=== PATIENT | female | born 1985 | race Caucasian/White ===

== ENCOUNTER 2017-01-24 18:43 | Emergency (ER) | payer MEDICAID ==
[~2017-01-24] VITALS: Ht 157.5 cm; Wt 64.0 kg
[~2017-01-24 18:43] MED LIST: PNV11TAB PO
[2017-01-24 18:48] VITALS: Ht 157.5 cm; Wt 64.0 kg
[2017-01-24] MEDS ORDERED: ACETAMINOPHEN 325 MG TAB PO STA (20:36)
--- NOTE | 2017-01-24 21:23 | RADRPT ---
PROCEDURE: US OB. CLINICAL INDICATION: Pelvic pain. . TECHNIQUE: Multiple sonographic images of the uterus were obtained. The images were revi ewed on a PACS workstation. COMPARISON: No prior studies are available for comparison. FINDINGS: There is a single live intrauterine gestation. heart rate is 150 beats per minute. Measurements were made in order to determine age. The results are as follows: BPD = 4.25 cm. HC = 15.15 cm. AC = 13.56 cm. FL = 2.18 cm. Estimated weight is 255 +/- 38 grams. LMP growth percentile is greater than 97 %. Menstrual age by ultrasound dates is 18 weeks 5 days. The estimated date of delivery is 06/22/2017. Maximum vertical pocket of amniotic fluid is 4.7 cm. Cervical length is 4.0 cm. Position is breech/variable and placenta is posterior grade 0. There is no evidence for an abruption or placenta previa. IMPRESSION: 1. Single live intrauterine gestation of 18 weeks 5 days menstrual age by ultrasound dates. 2. The estimated date of delivery is 06/22/2017. RPTAT: QQ .Ag Pritchett MD, Date Time Electronically viewed and signed by .Ag Pritchett MD, on 01/24/2017 21:23 .R/
[2017-01-24] MEDS ORDERED: TYL500 PO (22:17)
--- NOTE | 2017-01-24 22:26 | ERD ---
ER Documentation Chief Complaint Chief Complaint lower abd pain and back pain x2 days. 18 weeks . HPI This is a 31-year-old female that presents to the ER with lower pelvic pain and back pain for the last 2 days. Patient states that back pain is located in the lower back. She denies any vaginal discharge or leakage. She denies any vaginal bleeding. Patient denies any urinary frequency or dysuria. A2. ROS 12 point review of systems was done, all negative except per HPI. Medications Home Meds Active Scripts Acetaminophen* (Tylenol*) 500 Mg Tab, 500 MG PO Q4H Y for MILD PAIN LEVEL 1-3 for 3 Days, TAB Prov:SHAYE STOKES 01/24/17 Reported Medications [id number] ( 19) 1 Each Tablet, 1 EACH PO 05/20/13 Allergies Allergies: Coded Allergies: No Known Drug Allergy (Verified Allergy, Unknown, 01/24/17) PMhx/Soc Medical and Surgical Hx: pt denies Medical Hx, pt denies Surgical Hx Hx Alcohol Use: No Hx Substance Use: No Hx Tobacco Use: No Smoking Status: Never smoker Physical Exam Vitals Vital Signs Date Time Temp Pulse Resp B/P Pulse Ox O2 Delivery O2 Flow Rate FiO2 01/24/17 18:48 98.6 61 20 126/69 99 Physical Exam GENERAL: The patient is well developed and appropriate for usual state of health , in no apparent distress. HEENT: Atraumatic CHEST: Clear to auscultation bilaterally. There are no rales, wheezes or rhonchi. HEART: Regular rate and rhythm. No murmurs, clicks, rubs or gallops. ABDOMEN: Soft, nontender and nondistended. Good bowel sounds. No rebound or guarding. No gross peritonitis. No gross organomegaly or masses. No Mtz sign or McBurney point tenderness. Mild pelvic pain with palpation BACK: No midline or flank tenderness. NEURO: Alert and oriented. Result Diagram: 01/24/17 2100 Results 24 hrs Laboratory Tests Test 01/24/17 21:00 White Blood Count 9.010^3/ul Red Blood Count 4.4710^6/ul Hemoglobin 13.3g/dl Hematocrit 40.4% Mean Corpuscular Volume 90.4fl Mean Corpuscular Hemoglobin 29.8pg Mean Corpuscular Hemoglobin Concent 32.9g/dl Red Cell Distribution Width 14.5% Platelet Count 18664^3/UL Mean Platelet Volume 11.1fl Neutrophils % 62.7% Lymphocytes % 27.1% Monocytes % 7.0% Eosinophils % 2.3% Basophils % 0.3% Nucleated Red Blood Cells % 0.0/100WBC Neutrophils # 5.710^3/ul Lymphocytes # 2.410^3/ul Monocytes # 0.610^3/ul Eosinophils # 0.210^3/ul Basophils # 0.010^3/ul Nucleated Red Blood Cells # 0.010^3/ul Urine Color STRAW Urine Clarity CLEAR Urine pH 7.0 Urine Specific [place] 1.008 Urine Ketones NEGATIVEmg/dL Urine Nitrite NEGATIVEmg/dL Urine Bilirubin NEGATIVEmg/dL Urine Urobilinogen NEGATIVEmg/dL Urine Leukocyte Esterase NEGATIVELeu/ul Urine Hemoglobin NEGATIVEmg/dL Urine Glucose NEGATIVEmg/dL Urine Total Protein NEGATIVEmg/dl Beta HCG, Quantitative 7422.7mIU/ml Current Medications Medications (Trade) Dose Ordered Sig/Chevy Route PRN Reason Start Time Stop Time Status Last Admin Dose Admin Acetaminophen (Tylenol Tab) 650 mg ONCE STAT PO 01/24/17 20:36 01/24/17 20:40 DC 01/24/17 21:27 [place] [address] Radiology Main Line: [phone] DIAGNOSTIC IMAGING REPORT Patient: MIGUEL KAN : 1985 Age: 31 Sex: F MR #: [id number] DOS: 01/24/17 0000 Ordering MD: SHAYE STOKES PA-C Location: [facility] Room/Bed: PROCEDURE: US OB. CLINICAL INDICATION: Pelvic pain. . TECHNIQUE: Multiple sonographic images of the uterus were obtained. The images were reviewed on a PACS workstation. COMPARISON: No prior studies are available for comparison. FINDINGS: There is a single live intrauterine gestation. heart rate is 150 beats per minute. Measurements were made in order to determine age. The results are as follows: BPD = 4.25 cm. HC = 15.15 cm. AC = 13.56 cm. FL = 2.18 cm. Estimated weight is 255 +/- 38 grams. LMP growth percentile is greater than 97 %. Menstrual age by ultrasound dates is 18 weeks 5 days. The estimated date of delivery is 06/22/2017. Maximum vertical pocket of amniotic fluid is 4.7 cm. Cervical length is 4.0 cm. Position is breech/variable and placenta is posterior grade 0. There is no evidence for an abruption or placenta previa. IMPRESSION: 1. Single live intrauterine gestation of 18 weeks 5 days menstrual age by ultrasound dates. 2. The estimated date of delivery is 06/22/2017. RPTAT: QQ .Ag Pritchett MD, MD Date Time Electronically viewed and signed by .Ag Pritchett MD, MD on 01/24/2017 21:23 .R/ CC: SHAYE STOKES Procedures/MDM This is a 31-year-old female presents to the ER with pelvic pain and back pain for the last 2 days. Etiology of pelvic pain is unknown, however there is no evidence of placenta previa, placenta abruptio any other abnormalities. Patient has denied any vaginal discharge, suspicion for premature rupture of membranes is low. Suspicion for miscarriage is low, she does not have any bleeding. Patient denied any trauma to her back or pelvic area. He sent home with Tylenol. She needs to follow-up with her primary care doctor within 1-2 days or return to ER sooner if symptoms worsen. My medical decision making shared with the patient she understands and agrees with plan. Departure Diagnosis: Primary Impression: Pelvic pain Condition: Stable Patient Instructions: Pelvic Pain In : Unclear (2-3 Trimester) Additional Instructions: Llame al doctor MAANA y negrita darin BRANDON PARA DENTRO DE 1-2 RAYO.Dgale a la secretaria que nosotros le instruimos hacer esta brandon.Avise o llame si kulkarni condicin se empeora antes de la brandon. Regresa aqui si peor o no mejor. SHAYE STOKES Jan 24, 2017 22:26
--- NOTE | 2017-01-24 22:26 | ERD ---
ER Documentation Chief Complaint Chief Complaint lower abd pain and back pain x2 days. 18 weeks . HPI This is a 31-year-old female that presents to the ER with lower pelvic pain and back pain for the last 2 days. Patient states that back pain is located in the lower back. She denies any vaginal discharge or leakage. She denies any vaginal bleeding. Patient denies any urinary frequency or dysuria. A2. ROS 12 point review of systems was done, all negative except per HPI. Medications Home Meds Active Scripts Acetaminophen* (Tylenol*) 500 Mg Tab, 500 MG PO Q4H Y for MILD PAIN LEVEL 1-3 for 3 Days, TAB Prov:SHAYE STOKES 01/24/17 Reported Medications [id number] ( 19) 1 Each Tablet, 1 EACH PO 05/20/13 Allergies Allergies: Coded Allergies: No Known Drug Allergy (Verified Allergy, Unknown, 01/24/17) PMhx/Soc Medical and Surgical Hx: pt denies Medical Hx, pt denies Surgical Hx Hx Alcohol Use: No Hx Substance Use: No Hx Tobacco Use: No Smoking Status: Never smoker Physical Exam Vitals Vital Signs Date Time Temp Pulse Resp B/P Pulse Ox O2 Delivery O2 Flow Rate FiO2 01/24/17 18:48 98.6 61 20 126/69 99 Physical Exam GENERAL: The patient is well developed and appropriate for usual state of health , in no apparent distress. HEENT: Atraumatic CHEST: Clear to auscultation bilaterally. There are no rales, wheezes or rhonchi. HEART: Regular rate and rhythm. No murmurs, clicks, rubs or gallops. ABDOMEN: Soft, nontender and nondistended. Good bowel sounds. No rebound or guarding. No gross peritonitis. No gross organomegaly or masses. No Mtz sign or McBurney point tenderness. Mild pelvic pain with palpation BACK: No midline or flank tenderness. NEURO: Alert and oriented. Result Diagram: 01/24/17 2100 Results 24 hrs Laboratory Tests Test 01/24/17 21:00 White Blood Count 9.010^3/ul Red Blood Count 4.4710^6/ul Hemoglobin 13.3g/dl Hematocrit 40.4% Mean Corpuscular Volume 90.4fl Mean Corpuscular Hemoglobin 29.8pg Mean Corpuscular Hemoglobin Concent 32.9g/dl Red Cell Distribution Width 14.5% Platelet Count 69847^3/UL Mean Platelet Volume 11.1fl Neutrophils % 62.7% Lymphocytes % 27.1% Monocytes % 7.0% Eosinophils % 2.3% Basophils % 0.3% Nucleated Red Blood Cells % 0.0/100WBC Neutrophils # 5.710^3/ul Lymphocytes # 2.410^3/ul Monocytes # 0.610^3/ul Eosinophils # 0.210^3/ul Basophils # 0.010^3/ul Nucleated Red Blood Cells # 0.010^3/ul Urine Color STRAW Urine Clarity CLEAR Urine pH 7.0 Urine Specific [place] 1.008 Urine Ketones NEGATIVEmg/dL Urine Nitrite NEGATIVEmg/dL Urine Bilirubin NEGATIVEmg/dL Urine Urobilinogen NEGATIVEmg/dL Urine Leukocyte Esterase NEGATIVELeu/ul Urine Hemoglobin NEGATIVEmg/dL Urine Glucose NEGATIVEmg/dL Urine Total Protein NEGATIVEmg/dl Beta HCG, Quantitative 7422.7mIU/ml Current Medications Medications (Trade) Dose Ordered Sig/Chevy Route PRN Reason Start Time Stop Time Status Last Admin Dose Admin Acetaminophen (Tylenol Tab) 650 mg ONCE STAT PO 01/24/17 20:36 01/24/17 20:40 DC 01/24/17 21:27 [place] [address] Radiology Main Line: [phone] DIAGNOSTIC IMAGING REPORT Patient: MIGUEL KAN : 1985 Age: 31 Sex: F MR #: [id number] DOS: 01/24/17 0000 Ordering MD: SHAYE STOKES PA-C Location: [facility] Room/Bed: PROCEDURE: US OB. CLINICAL INDICATION: Pelvic pain. . TECHNIQUE: Multiple sonographic images of the uterus were obtained. The images were reviewed on a PACS workstation. COMPARISON: No prior studies are available for comparison. FINDINGS: There is a single live intrauterine gestation. heart rate is 150 beats per minute. Measurements were made in order to determine age. The results are as follows: BPD = 4.25 cm. HC = 15.15 cm. AC = 13.56 cm. FL = 2.18 cm. Estimated weight is 255 +/- 38 grams. LMP growth percentile is greater than 97 %. Menstrual age by ultrasound dates is 18 weeks 5 days. The estimated date of delivery is 06/22/2017. Maximum vertical pocket of amniotic fluid is 4.7 cm. Cervical length is 4.0 cm. Position is breech/variable and placenta is posterior grade 0. There is no evidence for an abruption or placenta previa. IMPRESSION: 1. Single live intrauterine gestation of 18 weeks 5 days menstrual age by ultrasound dates. 2. The estimated date of delivery is 06/22/2017. RPTAT: QQ .Ag Pritchett MD, MD Date Time Electronically viewed and signed by .Ag Pritchett MD, MD on 01/24/2017 21:23 .R/ CC: SHAYE STOKES Procedures/MDM This is a 31-year-old female presents to the ER with pelvic pain and back pain for the last 2 days. Etiology of pelvic pain is unknown, however there is no evidence of placenta previa, placenta abruptio any other abnormalities. Patient has denied any vaginal discharge, suspicion for premature rupture of membranes is low. Suspicion for miscarriage is low, she does not have any bleeding. Patient denied any trauma to her back or pelvic area. He sent home with Tylenol. She needs to follow-up with her primary care doctor within 1-2 days or return to ER sooner if symptoms worsen. My medical decision making shared with the patient she understands and agrees with plan. Departure Diagnosis: Primary Impression: Pelvic pain Condition: Stable Patient Instructions: Pelvic Pain In : Unclear (2-3 Trimester) Additional Instructions: Llame al doctor MAANA y negrita darin BRANDON PARA DENTRO DE 1-2 RAYO.Dgale a la secretaria que nosotros le instruimos hacer esta brandon.Avise o llame si kulkarni condicin se empeora antes de la brandon. Regresa aqui si peor o no mejor. SHAYE STOKES Jan 24, 2017 22:26
--- NOTE | 2017-01-24 22:26 | ERD ---
ER Documentation Chief Complaint Chief Complaint lower abd pain and back pain x2 days. 18 weeks . HPI This is a 31-year-old female that presents to the ER with lower pelvic pain and back pain for the last 2 days. Patient states that back pain is located in the lower back. She denies any vaginal discharge or leakage. She denies any vaginal bleeding. Patient denies any urinary frequency or dysuria. A2. ROS 12 point review of systems was done, all negative except per HPI. Medications Home Meds Active Scripts Acetaminophen* (Tylenol*) 500 Mg Tab, 500 MG PO Q4H Y for MILD PAIN LEVEL 1-3 for 3 Days, TAB Prov:SHAYE STOKES 01/24/17 Reported Medications [id number]-PX-YUF ( 19) 1 Each Tablet, 1 EACH PO 05/20/13 Allergies Allergies: Coded Allergies: No Known Drug Allergy (Verified Allergy, Unknown, 01/24/17) PMhx/Soc Medical and Surgical Hx: pt denies Medical Hx, pt denies Surgical Hx Hx Alcohol Use: No Hx Substance Use: No Hx Tobacco Use: No Smoking Status: Never smoker Physical Exam Vitals Vital Signs Date Time Temp Pulse Resp B/P Pulse Ox O2 Delivery O2 Flow Rate FiO2 01/24/17 18:48 98.6 61 20 126/69 99 Physical Exam GENERAL: The patient is well developed and appropriate for usual state of health , in no apparent distress. HEENT: Atraumatic CHEST: Clear to auscultation bilaterally. There are no rales, wheezes or rhonchi. HEART: Regular rate and rhythm. No murmurs, clicks, rubs or gallops. ABDOMEN: Soft, nontender and nondistended. Good bowel sounds. No rebound or guarding. No gross peritonitis. No gross organomegaly or masses. No Mtz sign or McBurney point tenderness. Mild pelvic pain with palpation BACK: No midline or flank tenderness. NEURO: Alert and oriented. Result Diagram: 01/24/17 2100 Results 24 hrs Laboratory Tests Test 01/24/17 21:00 White Blood Count 9.010^3/ul Red Blood Count 4.4710^6/ul Hemoglobin 13.3g/dl Hematocrit 40.4% Mean Corpuscular Volume 90.4fl Mean Corpuscular Hemoglobin 29.8pg Mean Corpuscular Hemoglobin Concent 32.9g/dl Red Cell Distribution Width 14.5% Platelet Count 53678^3/UL Mean Platelet Volume 11.1fl Neutrophils % 62.7% Lymphocytes % 27.1% Monocytes % 7.0% Eosinophils % 2.3% Basophils % 0.3% Nucleated Red Blood Cells % 0.0/100WBC Neutrophils # 5.710^3/ul Lymphocytes # 2.410^3/ul Monocytes # 0.610^3/ul Eosinophils # 0.210^3/ul Basophils # 0.010^3/ul Nucleated Red Blood Cells # 0.010^3/ul Urine Color STRAW Urine Clarity CLEAR Urine pH 7.0 Urine Specific [place] 1.008 Urine Ketones NEGATIVEmg/dL Urine Nitrite NEGATIVEmg/dL Urine Bilirubin NEGATIVEmg/dL Urine Urobilinogen NEGATIVEmg/dL Urine Leukocyte Esterase NEGATIVELeu/ul Urine Hemoglobin NEGATIVEmg/dL Urine Glucose NEGATIVEmg/dL Urine Total Protein NEGATIVEmg/dl Beta HCG, Quantitative 7422.7mIU/ml Current Medications Medications (Trade) Dose Ordered Sig/Chevy Route PRN Reason Start Time Stop Time Status Last Admin Dose Admin Acetaminophen (Tylenol Tab) 650 mg ONCE STAT PO 01/24/17 20:36 01/24/17 20:40 DC 01/24/17 21:27 [place] [address] Radiology Main Line: [phone] DIAGNOSTIC IMAGING REPORT Patient: MIGUEL KAN : 1985 Age: 31 Sex: F MR #: [id number] DOS: 01/24/17 0000 Ordering MD: SHAYE STOKES PA-C [facility] Room/Bed: PROCEDURE: US OB. CLINICAL INDICATION: Pelvic pain. . TECHNIQUE: Multiple sonographic images of the uterus were obtained. The images were reviewed on a PACS workstation. COMPARISON: No prior studies are available for comparison. FINDINGS: There is a single live intrauterine gestation. heart rate is 150 beats per minute. Measurements were made in order to determine age. The results are as follows: BPD = 4.25 cm. HC = 15.15 cm. AC = 13.56 cm. FL = 2.18 cm. Estimated weight is 255 +/- 38 grams. LMP growth percentile is greater than 97 %. Menstrual age by ultrasound dates is 18 weeks 5 days. The estimated date of delivery is 06/22/2017. Maximum vertical pocket of amniotic fluid is 4.7 cm. Cervical length is 4.0 cm. Position is breech/variable and placenta is posterior grade 0. There is no evidence for an abruption or placenta previa. IMPRESSION: 1. Single live intrauterine gestation of 18 weeks 5 days menstrual age by ultrasound dates. 2. The estimated date of delivery is 06/22/2017. RPTAT: QQ .gA Pritchett MD, MD Date Time Electronically viewed and signed by .Ag Pritchett MD, MD on 01/24/2017 21:23 .R/ CC: SHAYE STOKES Procedures/MDM This is a 31-year-old female presents to the ER with pelvic pain and back pain for the last 2 days. Etiology of pelvic pain is unknown, however there is no evidence of placenta previa, placenta abruptio any other abnormalities. Patient has denied any vaginal discharge, suspicion for premature rupture of membranes is low. Suspicion for miscarriage is low, she does not have any bleeding. Patient denied any trauma to her back or pelvic area. He sent home with Tylenol. She needs to follow-up with her primary care doctor within 1-2 days or return to ER sooner if symptoms worsen. My medical decision making shared with the patient she understands and agrees with plan. Departure Diagnosis: Primary Impression: Pelvic pain Condition: Stable Patient Instructions: Pelvic Pain In : Unclear (2-3 Trimester) Additional Instructions: Llame al doctor MAANA y negrita darin BRANDON PARA DENTRO DE 1-2 RAYO.Dgale a la secretaria que nosotros le instruimos hacer esta brandon.Avise o llame si kulkarni condicin se empeora antes de la brandon. Regresa aqui si peor o no mejor. SHAYE STOKES Jan 24, 2017 22:26
== END 2017-01-24 22:26 | disposition home or self-care (01) ==
LOC: FTE 18:43
DX: O26.892 Other specified pregnancy related conditions, second trimester (principal); R10.2 Pelvic and perineal pain; Z3A.18 18 weeks gestation of pregnancy
CPT/HCPCS: 36415; 76805; 81003; 84702; 85025; 86900; 86901; Z7502; Z7610